=== PATIENT | female | born 2000 | race Asian ===

== ENCOUNTER 2024-12-21 04:51 | Emergency (ER) | payer OTHER ==
[~2024-12-21] VITALS: Ht 157.5 cm; Wt 59.1 kg
[2024-12-21] MEDS: emtricitabine/tenofovir 200mg/300mg tablet PO ONE ×2 (05:15→06:15)
[2024-12-21] MEDS ORDERED: EMTR1TAB12 PO (05:17)
--- NOTE | 2024-12-21 05:17 | Physician Documentation ---
History of Present Illness ~ Chief Complaint: Body Fluid Exposure Stated Complaint: EXPOSURE Time Seen by MD: 05:13 HPI Patient presents to the emergency room after blood exposure to an HIV patient. She states that she got the blood in her mouth and face. She was wearing her glasses and she is unsure she gotten in her eye. Medication Reconciliation Allergies: Coded Allergies: No Known Allergies (Unverified , 12/21/24) Review of Systems ROS All review of systems negative except as per HPI Physical Exam Vital Signs: Temperature: 98.1, Source: Oral, Heart Rate: 75, Respiratory Rate: 15, BP: 121/85, Pulse Oximetry: 100, Weight: 59.090 Physical Exam General: Patient is awake, alert, oriented x4 in no acute distress and well appearing.~ Head: Normocephalic and atraumatic. Eyes: Conjunctival normal. EOMI. PERRL. ENT: Mucous membranes moist. Neck: Supple, trachea is midline. Chest: Clear to auscultation bilaterally without rales, rhonchi, or wheezes. There is no accessory muscle use or retractions. Cardiac: RRR without murmurs, gallops, or rubs. Progress Results/Orders Results/Orders Vital Signs 12/21/24 12/21/24 04:57 05:10 Temp 98.1 Pulse 80 75 Resp 16 15 B/P (MAP) 135/93 121/85 (97) Pulse Ox 99 100 Medical Decision Making Findings Patient presents to the emergency room after blood exposure with possible blood in the eye. Given risks versus benefits discussed with patient we are moving forward with antiviral therapy. She is to follow up with the occupational health. Departure Disposition: HOME / SELF CARE / HOMELESS Impression: Primary Impression: Exposure to body fluid Condition: Stable Discharge Instructions: Body Fluid Exposure Additional Instructions: Follow up with occupational health tomorrow for additional guidance and possible testing. Referrals: NO PRIMARY CARE PROVIDER (PCP) Prescriptions Emtricitabine/Tenofovir (Truvada 200 Mg-300 Mg Tablet) 200 Mg-300 Mg Tablet 1 TAB PO DAILY for 30 Days, #30 TAB 0 Refills Prov: JERRY RESTREPO MD 12/21/24 Education Educated: Patient Educated regarding: treatment, need for follow up Signature Scribe Signature: No scribe Attestation: The note accurately reflects work and decisions made by me.Jerry Restrepo MD 12/21/24 05:17 JERRY RESTREPO MD Dec 21, 2024 05:17
[2024-12-21 06:08] VITALS: BP 110/87; PULSE 65; RESP 15; TEMP 98.1; O2SAT 100
[2024-12-21] MEDS ORDERED: raltegravir 400mg tablet PO SCH (09:33)
[2024-12-21] MEDS ORDERED: emtricitabine/tenofovir 200mg/300mg tablet PO SCH (09:34)
== END 2024-12-21 06:17 | disposition home or self-care (01) ==
LOC: EEVIPCON 04:52 → ER 04:52
DX: Z77.21 Contact with and (suspected) exposure to potentially hazardous body fluids (principal)
CPT/HCPCS: 99283